=== PATIENT | male | born 1995 | race African-American/Black ===

== ENCOUNTER 2016-12-23 10:32 | Emergency (ER) | payer OTHER ==
[~2016-12-23] VITALS: Ht 170.2 cm; Wt 53.0 kg
[2016-12-23 11:03] VITALS: Ht 170.2 cm; Wt 53.0 kg
--- NOTE | 2016-12-23 12:20 | RADRPT ---
PROCEDURE: XR Chest. CLINICAL INDICATION: Cough. Asthma. TECHNIQUE: Single frontal view. COMPARISON: None. FINDINGS: The lungs are clear. The heart size is normal. There is no pleural effusion. There is no pneumothorax. IMPRESSION: 1. Normal chest radiograph. RPTAT: QQ .Leonard Lee MD, Date Time Electronically viewed and signed by .Leonard Lee MD, on 12/23/2016 12:19 .R/
[2016-12-23] MEDS ORDERED: BENZ100C70 PO (12:30)
[2016-12-23] MEDS ORDERED: PRED20TA PO (12:30)
[2016-12-23] MEDS ORDERED: GUAI120S26 PO (12:30)
--- NOTE | 2016-12-23 13:14 | ERD ---
ER Documentation Chief Complaint Chief Complaint COUGH & CONGESTION X1MTH HPI 21-year-old male with a history of asthma presents emergency room with a cough with wheezing for "8 months". Patient states that it has not gotten that bad until the last 2 weeks. He reports that he is a smoker, cigarettes as well as cannabis. The patient describes a dry cough, and he states that there is phlegm in his chest that he cannot produce because he does not want cough. There is no hemoptysis, fevers or chills. No chest pain shortness of breath. ROS All systems reviewed and are negative except as per history of present illness. Medications Home Meds Active Scripts Gtsiiqrdfai-V-Phrydsjjrd Hb* (Guaifenesin* DM Syrup) 120 Ml Syrup, 10 ML PO Q4H Y for COUGH, #4 OZ Prov:JUANA ZHANG PA-C 12/23/16 Benzonatate* (Tessalon Perle*) 100 Mg Capsule, 100 MG PO Q8H Y for COUGH, #30 CAP Prov:JUANA ZHANG PA-C 12/23/16 Prednisone* (Prednisone*) 20 Mg Tab, 40 MG PO DAILY for 5 Days, TAB Prov:JUANA ZHANG PA-C 12/23/16 Allergies Allergies: Coded Allergies: No Known Allergy (Unverified , 12/23/16) PMhx/Soc History of Surgery: No Anesthesia Reaction: No Hx Neurological Disorder: No Hx Respiratory Disorders: Yes (asthma) Hx Cardiac Disorders: No Hx Psychiatric Problems: No Hx Miscellaneous Medical Probl: No Hx Alcohol Use: No Hx Substance Use: Yes (marijuana) Hx Tobacco Use: Yes Smoking Status: Never smoker Physical Exam Vitals Vital Signs Date Time Temp Pulse Resp B/P Pulse Ox O2 Delivery O2 Flow Rate FiO2 12/23/16 11:03 98.7 81 18 88/61 97 Physical Exam General: Well-developed, well-nourished. The patient appears in no acute distress. HEENT: Head is normocephalic, atraumatic. No scleral icterus. Neck: Supple. Nontender. Lungs: Wheezing bilaterally, no rales, rhonchi. Nonlabored. Heart: Regular rate and rhythm. S1 and S2 are normal. No murmurs, gallops, or rubs. Abdomen: Soft, nontender, nondistended. Bowel sounds are normoactive. Extremities: No clubbing or cyanosis. Normal pulses. Moving extremities x 4. No weakness. Neurologic: Alert and oriented 3. No focal deficits. Skin: Normal turgor. No rash or lesions. Results 24 hrs Chest X-ray 1V Interpreted by me as well as radiologist: Soft Tissue: No acute abnormalities Bones: No acute abnormalities Mediastinum/Cardiac Silhouette/Lungs: No acute abnormalities Procedures/MDM 21-year-old male presents to the emergency room with cough, appears to be a chronic cough exacerbated with smoking cigarettes and marijuana. Patient does present with wheezing however no signs of respiratory distress, he states that he has been wheezing like this for quite some time now. No hypoxia, labored breathing. The patient was offered a breathing treatment however he states that the albuterol does not work for him and does not treat bronchitis. Chest x -ray was performed, there is no evidence of pneumonia. I have advised him to follow-up with his primary care doctor, he may require further evaluation from the tool grinding technician that can be done outpatient. Smoking Cessation Therapy: Pt. was lectured for greater than 3 minutes on the health risks of continued smoking and the benefits of cessation. Departure Diagnosis: Primary Impression: Cough Additional Impression: Asthma Condition: Good Patient Instructions: Asthma, Acute (Adult), Cough, Chronic, Uncertain Cause, ( Adult) Referrals: STEPH GEIGER (PCP) JUANA ZHANG PA-C Dec 23, 2016 13:13
== END 2016-12-23 12:47 | disposition home or self-care (01) ==
LOC: FTE 10:32
DX: J45.909 Unspecified asthma, uncomplicated (principal); F17.210 Nicotine dependence, cigarettes, uncomplicated
CPT/HCPCS: 71010; Z7502

== ENCOUNTER 2017-12-23 15:34 | Emergency (ER) | END 2017-12-23 18:59 | disposition home or self-care (01) ==